=== PATIENT | female | born 1940 | race African-American/Black ===

== ENCOUNTER 2017-02-22 15:09 | Inpatient (IN) | payer MEDICARE ==
--- NOTE | ~2017-02-22 | DS ---
Discharge Summary [facility] [address] [facility] [place]. [address] NAME: ARGENIS RAMOS : 42 STATUS : DIS IN PAT#: [id number] AGE: 76 ADM/REG DATE : 02/22/17 MR#: [id number] REPORT SERV DATE: 02/24/17 DICTATED BY: BER JARA DATE: 02/23/17 REPORT STATUS : Draft TRANSCRIBED BY: MODL DATE: 02/23/17 ADMISSION DATE: 02/22/2017 DISCHARGE DATE: 02/23/2017 HOSPITAL COURSE: Ms Ramos is a 76-year-old female who was admitted to the intensive care unit on 02/22/2017, several hours prior to her passing. She has underlying septic shock, respiratory failure, pneumonia versus mass, and stroke-like symptoms. She was clearly having a lactic acidosis and on pressor support. On our initial observation, the patient was also having a type 2 myocardial infarction. However, more concerning, she was on four of Levophed and found to have cold feet bilaterally out of proportion to the level of which the patient is on pressors. We attempted to get ultrasonographic evidence of pulses in the lower extremity and we were unable. We obtained lower extremity arterial duplex which showed no flow. Vascular Surgery was called and had a long discussion with the family. It was decided at that time not to pursue surgical options and transfer to comfort care measures. This was done, and the family felt that the patient would want this as her wishes. The patient was removed from life support and naturally at 3:02 in the morning on 02/23/2017. DISPOSITION: . HFQ/MODL Bre Jara MD / [id number] CC: MD Tyrone Estrella M.D.
--- NOTE | ~2017-02-22 | HP ---
History And Physical [id number] [place]. [address] NAME: ARGENIS RAMOS : 42 STATUS : ADM IN [facility]#: [id number] AGE: 76 ADM/REG DATE : 02/22/17 MR#: [id number] REPORT SERV DATE: 02/22/17 DICTATED BY: BRE JARA DATE: 02/22/17 REPORT STATUS : Draft TRANSCRIBED BY: MODL DATE: 02/22/17 DATE OF ADMISSION: 02/22/2017 ADMISSION DIAGNOSES: Septic shock, respiratory failure, pneumonia versus mass, stroke-like symptoms. CHIEF COMPLAINT: Unable to obtain as the patient is currently intubated. HISTORY OF PRESENT ILLNESS: Ms Ramos is a 76-year-old female with a past medical history noted below, who presented with falling and extremity weakness today, this started yesterday, and the patient was having worsening right-sided weakness. Family brought her in, her initial blood pressure was actually adequate with 118 systolic, but temperature of 101. She was very tachycardic and hypoxic, however. After intubation, she is now on Levophed. The patient per the ER record is a poor historian. They noted that she has been having falling this morning, but no head trauma or loss of consciousness. Otherwise, no further past history recently. No chest pain. No other positive review of systems. PAST MEDICAL HISTORY: History of myocardial infarction, COPD, history of stroke, and TIA. HOME MEDICATIONS: Home medication list reviewed and documented in the chart, this is an incomplete record and need to call Pharmacy per Pharmacy documentation. ALLERGIES: NO KNOWN DRUG ALLERGIES. FAMILY HISTORY: No significant family history per record. SOCIAL HISTORY: The patient has a very supportive family. No alcohol or drug use. REVIEW OF SYSTEMS: All pertinent review of systems is unable to be obtained due to the patient's medical status. PHYSICAL EXAMINATION: Vital signs: Temperature on admission is 101, heart rate currently is tachycardic in the 120s, blood pressure currently in the 110s systolic, on Levophed, current oxygen saturation is 100%. GENERAL INFORMATION: The patient is moving her left extremity, she tries to move her right extremity on pain, but weaker, otherwise seems comfortable, however, the patient is on propofol. GENERAL: The patient is currently sedated and intubated. HEENT: Neck is supple. PERRLA. PULMONARY: Rhonchorous breath sounds bilaterally with no wheezing, decreased breath sounds on the left, however. CARDIAC: Tachycardia. No murmurs. ABDOMEN: Abdomen is soft, nontender, nondistended. Positive bowel sounds. EXTREMITIES: Left and right lower extremities are cold to touch, right leg has mild swelling History And Physical [address] [address] NAME: ARGENIS RAMOS : 42 STATUS : ADM IN PAT#: [id number] AGE: 76 ADM/REG DATE : 02/22/17 MR#: [id number] REPORT SERV DATE: 02/22/17 DICTATED BY: BRE JARA DATE: 02/22/17 REPORT STATUS : Draft TRANSCRIBED BY: OMAIRA DATE: 02/22/17 compared to the left, no palpable pulses in the lower extremity which are cold, but otherwise, the rest of the body is warm. Pulses felt in the wrists, however, faint. LABORATORY EXAMINATION: The patient has a white blood cell count of 26.1, platelet count 366, creatinine 1.24, lactate 3, troponin 0.47, positive transaminitis, arterial blood gas shows worsening pCO2, mechanical ventilation strategy has been changed. CARDIAC: EKG shows no evidence of ST-elevation [place], but does show tachycardia. IMAGING DATA: Chest x-ray shows a left lower lobe pneumonia and/or mass. ASSESSMENT AND PLAN: Ms Ramos is a 76-year-old female with a past medical history noted above, who presents with the above complaints. 1. Acute hypoxic respiratory failure: The patient is currently intubated. At this moment, we will check an arterial blood gas and change ventilation strategy as needed. We will obtain sputum culture. We will obtain a CT scan of the chest. May need to have a bronchoscopy if the patient has a tumor. That would help with further diagnostic and prognostic workup. 2. Septic shock: Currently, the patient is getting antibiotics with Rocephin and azithromycin, we will continue, culture is pending. The patient is on low dose. We will give IV fluids. 3. Positive troponin: Most likely a type 2 myocardial infarction. We will continue to evaluate troponins. 4. Cold extremity with lower extremity edema on the right side. We will obtain a lower extremity Doppler and duplex of venous and arterial kit to rule out deep venous thrombosis and intra-arterial clot. 5. Transaminitis: We will obtain liver function tests in the morning. 6. Diet: At this moment in time, we will keep n.p.o. 7. Prophylaxis: Subcu heparin, Protonix. 8. Code status: The patient is currently full code, need ongoing discussions with family. HFQ/MODL Bre Jara MD / [id number] CC: MD Tyrone Estrella M.D.
--- NOTE | ~2017-02-22 | CN ---
Consultation Report [facility] [address] [place]. [address] NAME: ARGENIS GOMEZ : 42 STATUS : ADM IN PAT#: [id number] AGE: 76 ADM/REG DATE : 02/22/17 MR#: [id number] REPORT SERV DATE: 02/23/17 DICTATED BY: ROBIN LOYOLA DATE: 02/23/17 REPORT STATUS : Draft TRANSCRIBED BY: MODL DATE: 02/23/17 CONSULTATION REPORT DATE OF CONSULTATION: 02/23/2017 REASON FOR CONSULTATION: Evaluation for acute bilateral lower extremity ischemia. BRIEF HISTORY: The patient is a 76-year-old female with a past medical history significant for tobacco abuse and a recent stroke at the end of September who presented after being found down by the patient's son. Apparently, he takes her breakfast every morning and he found her on the floor. He picked her up and noted that she was a little limp. She does have some baseline weakness from her stroke, but this is more pronounced today. He placed her back up in a chair and gave her breakfast. He checked back on her an hour later and she had fallen on the floor again. She was brought into the hospital and was found to have what was thought to be a pneumonia or lung mass. Additionally, she had distributive shock with a slightly elevated troponin. Her renal function was slightly abnormal and her urine output began to drop off. She was noted to be hypoxic, requiring intubation. During all this, she was noted to have cold legs with no signals. A duplex confirmed this, so I was consulted for evaluation and treatment. The patient is unable to provide any history because of her current intubation and sedation. The family provided the aforementioned history. PAST MEDICAL HISTORY: Stroke and hypertension. PAST SURGICAL HISTORY: None. SOCIAL HISTORY: She is a heavy smoker. There is no history of alcohol or drug use. FAMILY HISTORY: Noncontributory. REVIEW OF SYSTEMS: Could not be performed as the patient is intubated and sedated. PHYSICAL EXAMINATION: VITAL SIGNS: Documented on the chart were reviewed. GENERAL: The patient is sedated, in no apparent distress. She is on propofol. HEAD AND NECK: Her head and neck examination is benign. HEART: Her heart is tachycardic. She was hypotensive with a blood pressure in the 80s on 30 of Levophed and 0.04 of vasopressin. LUNGS: Her lungs are mostly clear, although she does have somewhat diminished breath sounds on the left side. Her FiO2 is 84% with an oxygen saturation of 95%. She is only on 5 of PEEP, but she is intubated. ABDOMEN: Her abdominal examination is benign. EXTREMITIES: She has a nonpalpable upper extremity pulses without any significant edema or ischemic ulcerations. I could feel a stronger left femoral pulse than a right femoral Consultation Report [id number] [place]. [address] NAME: ARGENIS GOMEZ : 42 STATUS : ADM IN PAT#: [id number] AGE: 76 ADM/REG DATE : 02/22/17 MR#: [id number] REPORT SERV DATE: 02/23/17 DICTATED BY: ROBIN LOYOLA DATE: 02/23/17 REPORT STATUS : Draft TRANSCRIBED BY: OMAIRA DATE: 02/23/17 pulse. She has nonpalpable pulses distally. Both of her feet and legs are cold to the level of the knees. She has no mottling, but she has no signals in her feet and ankles. NEUROLOGIC: Her neurological examination could not be assessed because of her current sedated state. MUSCULOSKELETAL: Reveals no flexion contractures. LABORATORY DATA: Her laboratory investigations revealed a slightly elevated troponin. Her creatinine is 1.24. I reviewed her chest x-ray. She either has a left lung mass or a dense pneumonia. Her lower extremity arterial duplex is not reported, but I looked at the images. She has [id number] flow below the knees bilaterally. ASSESSMENT AND PLAN: It looks like this lady who has acute kidney injury, a distributive shock, respiratory failure, and potentially a lung mass, now has profound bilateral lower extremity ischemia. Unfortunately, there are no good options here. She may be past the point of salvage with her legs. It sounds like this has been going on for at least the past 18 hours. Even if her legs were salvageable and we attempted thrombectomy, I do not think it would work. Moreover, it would essentially ensure dialysis at least for a short term. She would carry a high mortality risk with the operation. I talked to the family about primary amputations with this would also carry a high mortality risk. This does not even consider the morbidity of a stroke patient having bilateral amputations. We even talked about nonoperative management and the poor outcome from the toxins from her ischemic making her sick. The patient's son clearly state that she would not walk this. They wish for a DO NOT RESUSCITATE order. We are going to pursue comfort care. I spoke with Dr. Rome about this. The nurse was present for the discussion. JOINTER MACHINE/MODL Robin Loyola M.D. / [id number] CC: MD Tyrone Estrella M.D. Richard Pesce, M.D.
[2017-02-22 14:43] LABS: ER CBC TAT 0 Hrs 11 Mins; HEMATOCRIT 45.6 % (36.0-48.0); HEMOGLOBIN 14.5 g/dL (12.0-16.0); MEAN CORPUS HGB CONC 31.8 g/dL (32.0-36.0); MEAN CORPUSCULAR HEMOGLOB 29.9 pg (26.0-34.0); MEAN PLATELET VOLUME 10.9 fL (9.2-13.0); PLATELET COUNT 366 10/3/uL (150-400); RBC DISTRIBUTION WIDTH 13.3 % (12.0-16.0); RED CELL COUNT 4.85 10/6/uL (4.0-5.6); WHITE BLOOD CELLS 26.1 10/3/uL (4.5-10.5)
[2017-02-22 14:44] LABS: MANUAL DIFF YES %
[2017-02-22 14:47] LABS: INTERNATIONAL NORMAL RATI 1.3 UNITS (-); PARTIAL THROMBO TIME 34.8 SEC (22.5-37.2); PROTIME (NOT ORD) 15.7 SEC (12.0-14.5)
[2017-02-22 14:54] LABS: ASCORBIC ACID (UR NOT ORDER) NEG (NEG); BILIRUBIN, URINE NEGATIVE (NEG); ER URINALYSIS TAT 0 Hrs 22 Mins; KETONE, URINE 20 MG/DL (NEG); LEUKOCYTE ESTERASE(NOT OR NEG (NEG); NITRITE (URINE) NEG (NEG); WBC (NOT ORDERED) (RFLEX) 4 (0-5)
[2017-02-22 14:56] LABS: BUN (BLOOD UREA NITROGEN) 15 MG/DL (6-23); CALCIUM, SERUM 10.2 MG/DL (8.5-10.4); CHLORIDE, SERUM 104 MMOL/L (96-112); CO2 (CARBON DIOXIDE) 29 MMOL/L (24-34); CREATININE 1.24 MG/DL (0.55-1.02); GFR AFRICAN AMERICAN 49 ML/MIN (>=60); GFR NON AFRICAN AMERICAN 42 ML/MIN (>=60); GLUCOSE, SERUM 165 MG/DL (60-99); POTASSIUM, SERUM 3.5 MMOL/L (3.5-5.3); SGOT(AST) 96 U/L (5-40); SGPT(ALT) 75 U/L (5-65); SODIUM, SERUM 142 MMOL/L (135-148); TOTAL PROTEIN 8.6 G/DL (6.0-8.5)
[2017-02-22 14:57] LABS: A/G RATIO 0.5 (0.7-1.9); ALBUMIN 2.7 G/DL (3.5-5.0); ALKALINE PHOSPHATASE 124 U/L (45-117); GLOBULIN 5.9 G/DL (2.5-4.1); TOTAL BILIRUBIN 1.2 MG/DL (0-1.2); TROPONIN I 0.47 NG/ML (<0.05)
[2017-02-22] MEDS ORDERED: ACET500CAP PO (15:10)
[2017-02-22] MEDS ORDERED: XANAX (15:10)
[2017-02-22] MEDS ORDERED: DUONEB INH (15:10)
[2017-02-22] MEDS ORDERED: ASPIRIN (15:11)
[2017-02-22] MEDS ORDERED: PRAVASTATIN (15:12)
[2017-02-22] MEDS ORDERED: COREG (15:12)
[2017-02-22] MEDS ORDERED: *UNABLE2 (15:13)
[2017-02-22] MEDS ORDERED: HCTZ (15:13)
[2017-02-22 15:35] LABS: ALLENS TEST Pos; BE (BASE EXCESS) -4.7 MEQ/L (0 +/- 2.5); CARBOXYHEMOGLOBIN 2.2 % (0-3); HCO3 (ACTUAL BICARBONATE) 21.4 MEQ/L (23-27); HEMOBLOGIN CONTENT 12.9 G/DL (12-16); INSTRUMENT SERIAL # 8087; METHEMOGLOBIN 0.2 % (0-3); O2 CONTENT 15.8 VOL% (18-24); OPERATOR ID 32214; PCO2 (CO2 TENSION) 43 MMHG (35-45); PO2 (O2 TENSION) 60 MMHG (79-93); SAMPLE Arterial; pH 7.31 (7.37-7.43)
[2017-02-22 15:37] LABS: BAND NEUTROPHILS 30 %; ER DIFF TAT 1 Hrs 05 Mins; IMMATURE GRANS ABSOLUTE (CALC) 0.26 10/3/uL (0.0-0.11); LYMPHOCYTES 5 %; LYMPHOCYTES ABSOLUTE (CALC) 1.31 10/3/uL (0.67-4.30); METAMYELOCYTES 1 %; MONOCYTES 4 %; MONOCYTES ABSOLUTE (CALC) 1.04 10/3/uL (0.21-1.20); NEUTROPHILS ABSOLUTE (CALC) 23.49 10/3/uL (2.02-8.40); SEGMENTED NEUTROPHIL (0) 60 %; TOTAL NUCLEATED CELLS 100
[2017-02-22 15:38] LABS: PLATELET ESTIMATE ADQ (ADEQUATE); RBC MORPHOLOGY NORM (NORMAL)
[2017-02-22 17:15] LABS: BE (BASE EXCESS) -6.9 MEQ/L (0 +/- 2.5); CARBOXYHEMOGLOBIN 1.8 % (0-3); HCO3 (ACTUAL BICARBONATE) 23.1 MEQ/L (23-27); HEMOBLOGIN CONTENT 12.6 G/DL (12-16); INSTRUMENT SERIAL # 8087; METHEMOGLOBIN 0.2 % (0-3); MODE CMV; O2 CONTENT 16.9 VOL% (18-24); OPERATOR ID 32214; PCO2 (CO2 TENSION) 70 MMHG (35-45); PO2 (O2 TENSION) 108 MMHG (79-93); SAMPLE Arterial; TIDAL VOLUME 400 ML; pH 7.14 (7.37-7.43)
[2017-02-22 17:16] LABS: ALLENS TEST Pos
[2017-02-22 18:44] LABS: ALLENS TEST Pos; BE (BASE EXCESS) -7.2 MEQ/L (0 +/- 2.5); CARBOXYHEMOGLOBIN 0.3 % (0-3); HCO3 (ACTUAL BICARBONATE) 20.7 MEQ/L (23-27); HEMOBLOGIN CONTENT 12.8 G/DL (12-16); INSTRUMENT SERIAL # 35151; METHEMOGLOBIN 0.7 % (0-3); MODE CMV; O2 CONTENT 17.6 VOL% (18-24); OPERATOR ID 35784; PCO2 (CO2 TENSION) 52 MMHG (35-45); PO2 (O2 TENSION) 121 MMHG (79-93); SAMPLE Arterial; TIDAL VOLUME 400 ML; pH 7.22 (7.37-7.43)
[2017-02-22 19:34] LABS: PROCALCITONIN 11.97 ng/mL (<0.5)
[2017-02-22 19:36] LABS: FREE T4 1.51 NG/DL (0.76-1.46)
[2017-02-22 19:37] LABS: FOLATE 23.3 NG/ML (>5.2); ULTRASENSITIVE TSH 0.723 MCIU/ML (0.358-3.740)
== END 2017-02-23 03:02 | disposition expired | DRG 871 ==
LOC: ER 15:09 → IMCU 16:23 → CCU 16:34
PROVIDERS: Hospitalist; Internal Medicine
PROC: 5A1935Z Respiratory Ventilation, Less than 24 Consecutive Hours (ICD-10-PCS; principal; 2017-02-22)
DX: A41.9 Sepsis, unspecified organism (principal); I21.4 Non-ST elevation (NSTEMI) myocardial infarction; J96.01 Acute respiratory failure with hypoxia; R65.21 Severe sepsis with septic shock; J18.9 Pneumonia, unspecified organism; E87.2 Acidosis; N17.9 Acute kidney failure, unspecified; Z66 Do not resuscitate; Z51.5 Encounter for palliative care; I25.2 Old myocardial infarction; J44.9 Chronic obstructive pulmonary disease, unspecified; Z86.73 Personal history of transient ischemic attack (TIA), and cerebral infarction without residual deficits; I10 Essential (primary) hypertension; F17.210 Nicotine dependence, cigarettes, uncomplicated; R91.8 Other nonspecific abnormal finding of lung field; I99.8 Other disorder of circulatory system
CPT/HCPCS: 31720; 36600; 70450; 71010; 71020; 74000; 80053; 81001; 82140; 82533; 82607; 82746; 82805; 83605; 83690; 83735; 84100; 84145; 84439; 84443; 84484; 85025; 85610; 85730; 87040; 87070; 87077; 87186; 87205; 87641; 93005; 93925; 93970; 94002; 94640; 94770; 96374; 96375; 99291; 99292; A9270-GY; C1894; J0330; J0456; J3475